=== PATIENT | female | born 1980 | race Caucasian/White ===

== ENCOUNTER 2022-12-06 20:22 | Emergency (ER) | payer BC ==
[2022-12-06] MEDS ORDERED: Morphine 10 MG/ML SDV IM ONE (20:41)
[2022-12-06] MEDS ORDERED: Morphine 4 MG/ML Syringe IM ONE (20:52)
== END 2022-12-06 22:56 | disposition home or self-care (01) ==
LOC: MW.ED 20:22
DX: M54.42 Lumbago with sciatica, left side (principal); Z88.5 Allergy status to narcotic agent
CPT/HCPCS: 96372; 99283; J2270

== ENCOUNTER 2024-09-13 00:52 | Emergency (ER) | payer SELFPAY | END 2024-09-13 03:09 | disposition home or self-care (01) | LOC: MW.ED 00:52 | DX: F10.129 Alcohol abuse with intoxication, unspecified (principal); R11.10 Vomiting, unspecified; Z91.040 Latex allergy status; Z88.5 Allergy status to narcotic agent; Z79.899 Other long term (current) drug therapy; Y90.9 Presence of alcohol in blood, level not specified | CPT/HCPCS: 99282; 99284 ==